=== PATIENT | female | born 1980 | race Caucasian/White ===

== ENCOUNTER 2019-05-07 06:20 | Day surgery (SDC) | payer OTHER ==
[2019-05-07] MEDS ORDERED: MORGIDOX100 MG PO (09:49)
[2019-05-07] MEDS ORDERED: Tylenol #3 PO (09:49)
== END 2019-05-07 11:35 | disposition home or self-care (01) ==
LOC: CIR.AMB 06:20 → ADM 09-05 08:15
DX: D25.0 Submucous leiomyoma of uterus (principal); N84.0 Polyp of corpus uteri